=== PATIENT | female | born 1995 | race Caucasian/White ===

== ENCOUNTER 2020-01-10 23:36 | Emergency (ER) | payer OTHER ==
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
== END 2020-01-11 01:17 | disposition home or self-care (01) ==
LOC: ERS 23:36
DX: S06.0X1A Concussion with loss of consciousness of 30 minutes or less, initial encounter (principal); S00.81XA Abrasion of other part of head, initial encounter; S60.811A Abrasion of right wrist, initial encounter; S80.212A Abrasion, left knee, initial encounter; J45.909 Unspecified asthma, uncomplicated; V89.2XXA Person injured in unspecified motor-vehicle accident, traffic, initial encounter
CPT/HCPCS: 70450